=== PATIENT | male | born 1990 | race Caucasian/White ===

== ENCOUNTER 2017-04-16 11:50 | Emergency (ER) | payer BC ==
[2017-04-16] MEDS ORDERED: BOOSTRIX IM ONE ×2 (13:03→16:37)
[2017-04-16] MEDS ORDERED: XYLOCAINE 1% 20 mL INFILTRATI ONE (13:03)
[2017-04-16] MEDS ORDERED: NACL 0.9% IR ONE (13:03)
[2017-04-16] MEDS ORDERED: MOTRIN PO ONE ×2 (13:03→16:37)
[2017-04-16 13:04] VITALS: BP 119/76
--- NOTE | 2017-04-16 13:07 | Emergency Department Report ---
Chief Complaint: Wound/Laceration Stated Complaint: HAND LAC Time Seen by Provider: 04/16/17 13:01 - HPI History of Present Illness: PT c/o R hand laceration. PT states he punched a window because he locked his keys in his car. - ROS Review of Systems: + R hand pain + laceration - Exam Vital Signs: Vital Signs 04/16/17 13:01 Temperature 98.4 F Pulse Rate 82 Respiratory 20 Rate Blood Pressure 119/76 O2 Sat by Pulse 100 Oximetry Physical Exam: PT with R hand laceration, no active bleeding MSE screening note: Focused history and physical exam performed. Due to findings the following was ordered: xr, meds ED Disposition for MSE Condition: Stable
--- NOTE | 2017-04-16 13:27 | XRay Report ---
RIGHT HAND, 3 views: History: Right hand pain. The bony architecture is intact. Bony alignment is normal. No soft tissue abnormalities are seen. The joint spaces appear preserved. IMPRESSION: Unremarkable right hand.
[2017-04-16] MEDS ORDERED: XYLOCAINE 1% MPF 5 mL ONE (16:37)
[2017-04-16] MEDS ORDERED: NACL 0.9% 500 ML IR ONE (16:37)
--- NOTE | 2017-04-16 18:28 | Emergency Department Report ---
Upper Extremity - HPI Chief Complaint: Wound/Laceration Stated Complaint: HAND LAC Time Seen by Provider: 04/16/17 13:01 Upper Extremity: Right Hand Occurred When: Today Mechanism: Other (punched car window) Severity: moderate Symptoms: Yes Pain with Movement, Yes Deformity (visible laceration right volar hand 2nd MCP joint), Yes Swelling, Yes Laceration or Abrasion, No Limited Range of Movement, No Numbness, No Weakness, No Bruising/Ecchymosis Other History: 26-year-old male past medical history none presents with complaint of laceration to right second and third MCP areas. Patient states that he was trying to punch a car window and lacerated his hand in the process. States he was trying to break into his own vehicle because he locked himself outside of his car. Unaware of tetanus status. ED Review of Systems ROS: Stated complaint: HAND LAC Other details as noted in HPI Constitutional: denies: chills, fever Eyes: denies: eye pain, eye discharge, vision change ENT: denies: ear pain, throat pain Respiratory: denies: cough, shortness of breath, wheezing Cardiovascular: denies: chest pain, palpitations Endocrine: no symptoms reported Gastrointestinal: denies: abdominal pain, nausea, diarrhea Genitourinary: denies: urgency, dysuria Musculoskeletal: denies: back pain, joint swelling, arthralgia Skin: denies: rash, lesions Neurological: denies: headache, weakness, paresthesias Psychiatric: denies: anxiety, depression Hematological/Lymphatic: denies: easy bleeding, easy bruising ED Past Medical Hx - Past Medical History Previous Medical History?: No - Surgical History Past Surgical History?: No - Social History Smoking Status: Current Some Day Smoker Substance Use Type: Alcohol - Medications Home Medications: Home Medications Medication Instructions Recorded Confirmed Last Taken Type Acetaminophen/Codeine [Tylenol 1 tab PO Q6H PRN #10 tab 04/16/17 Unknown Rx /Codeine # 3 tab] Bacitracin/Polymixin B [Polysporin] 1 applicatio TP BID #1 tube 04/16/17 Unknown Rx Cephalexin [Keflex] 500 mg PO Q12HR #14 cap 04/16/17 Unknown Rx Naproxen [Naprosyn TAB] 375 mg PO BID PRN #20 tablet 04/16/17 Unknown Rx Upper Extremity Exam - Exam General: Vital signs noted. No distress. Alert and acting appropriately. Head and Torso: No HEENT Abnormality, No Neck Tenderness, No Chest/Lungs Abnormality, No Abdominal Tenderness, No Back Tenderness Shoulder Exam: Yes Normal Range of Motion in Shoulder, No Shoulder Tenderness, No Clavicle Tenderness, No Shoulder Deformity, No AC Joint Tenderness Arm Exam: No Arm/Humerus Tenderness, No Arm Deformity Elbow: No Elbow Tenderness, No Normal Range of Motion in Elbow, No Elbow Deformity Forearm: No Forearm Tenderness, No Forearm Deformity, No Pain with Pronation, No Pain with Supination Wrist: Yes Normal ROM in Wrist, No Wrist Tenderness, No Wrist Deformity, No Snuffbox Tenderness, No Pain with Axial Thumb Compression Hand: Yes Hand Tenderness (right second and third MCP joint laceration.), Yes Hand Deformity, Yes Normal ROM in Digit(s) (range of motion MCPs DIPs PIP is fully intact on exam, there is no snuffbox tenderness), No Digit Tenderness, No Digit(s) Deformity, No Tendon Dysfunction CMS Exam: Yes Normal Distal Pulses (distal sensation and distal capillary refill less than 1 second), No Broken Skin, No Normal Capillary Refill, No Normal Distal Sensation Hand L/R Back: 1 - C shaped laceration here at second and third MCP joints losing small amount of blood ED Course Vital Signs 04/16/17 13:01 Temperature 98.4 F Pulse Rate 82 Respiratory 20 Rate Blood Pressure 119/76 O2 Sat by Pulse 100 Oximetry - Laceration /Wound Repair Right Distal Hand Wound Location: upper extremity (right volar hand 2nd and 3rd mcp joints) Irrigated w/ Saline (ccs): 1,000 Betadine Prep?: Yes Volume Anesthetic (ccs): 5 Wound Repaired With: sutures Suture Size/Type: 4:0 Number of Sutures: 5 Layer Closure?: Yes Sterile Dressing Applied?: Yes (tripel abx ointment w/ kerlix wrap) ED Medical Decision Making - Medical Decision Making A/P: Right hand Laceration 1-sutures to be removed in 7-10 days 2-tetanus updated 3-Motrin when necessary, triple antibiotic ointment, short course keflex 4- pt advised to return to the ED for any fevers chills pus drainage erythema at site of laceration Critical care attestation.: If time is entered above; I have spent that time in minutes in the direct care of this critically ill patient, excluding procedure time. ED Disposition Clinical Impression: Hand laceration Qualifiers: Encounter type: initial encounter Foreign body presence: without foreign body Laterality: right Qualified Code(s): S61.411A - Laceration without foreign body of right hand, initial encounter Disposition: TO HOME OR SELFCARE Is pt being admited?: No Does the pt Need Aspirin: No Condition: Stable Instructions: Suture Care (ED), Laceration (ED), Hand Sprain (ED) Additional Instructions: Return to the ED in 7-10 days for suture removal Prescriptions: Acetaminophen/Codeine [Tylenol /Codeine # 3 tab] 1 tab PO Q6H PRN #10 tab PRN Reason: Pain Bacitracin/Polymixin B [Polysporin] 1 applicatio TP BID #1 tube Cephalexin [Keflex] 500 mg PO Q12HR #14 cap Naproxen [Naprosyn TAB] 375 mg PO BID PRN #20 tablet PRN Reason: Pain Referrals: [facility] [Provider Group] - 3-5 Days Forms: Work/School Release Form(ED) Time of Disposition: 18:29
[2017-04-16] MEDS ORDERED: TRIPLE ANTIBIOTIC TP ONE (18:36)
== END 2017-04-16 18:52 | disposition home or self-care (01) ==
LOC: ED 11:50
DX: S61.411A Laceration without foreign body of right hand, initial encounter (principal); F17.200 Nicotine dependence, unspecified, uncomplicated; W45.8XXA Other foreign body or object entering through skin, initial encounter; Y93.89 Activity, other specified; Y92.89 Other specified places as the place of occurrence of the external cause; Y99.8 Other external cause status
CPT/HCPCS: 90471; 90715

== ENCOUNTER 2017-04-26 14:39 | Emergency (ER) | payer BC ==
[2017-04-26 15:18] VITALS: BP 107/60
== END 2017-04-26 20:30 | disposition left against medical advice (07) ==
LOC: ED 14:39
DX: Z48.02 Encounter for removal of sutures (principal); Z53.21 Procedure and treatment not carried out due to patient leaving prior to being seen by health care provider

== ENCOUNTER 2017-05-04 08:38 | Emergency (ER) | payer BC ==
[2017-05-04 08:47] VITALS: BP 133/75
--- NOTE | 2017-05-04 11:25 | Emergency Department Report ---
Suture/Staple Removal - HPI Chief Complaint: Recheck/Abnormal Lab/Rx Stated Complaint: REMOVAL OF STITCHES Time Seen by Provider: 05/04/17 11:14 When Sutures or Allison Placed: >14 Days Ago Wound Location: R hand ED Review of Systems ROS: Stated complaint: REMOVAL OF STITCHES Other details as noted in HPI Constitutional: denies: chills, fever Gastrointestinal: denies: nausea, vomiting Skin: as per HPI, other (PT sttates he thinks he left his stitches in too long) ED Past Medical Hx - Past Medical History Previous Medical History?: No - Surgical History Past Surgical History?: No - Social History Smoking Status: Light Tobacco Smoker Substance Use Type: None - Medications Home Medications: Home Medications Medication Instructions Recorded Confirmed Last Taken Type Acetaminophen/Codeine [Tylenol 1 tab PO Q6H PRN #10 tab 04/16/17 Unknown Rx /Codeine # 3 tab] Bacitracin/Polymixin B [Polysporin] 1 applicatio TP BID #1 tube 04/16/17 Unknown Rx Cephalexin [Keflex] 500 mg PO Q12HR #14 cap 04/16/17 Unknown Rx Naproxen [Naprosyn TAB] 375 mg PO BID PRN #20 tablet 04/16/17 Unknown Rx Suture Removal Exam - Exam General: Vital signs noted. No distress. Alert and acting appropriately. Wound: No Pathologic Erythema, No Tenderness, No Drainage, No Pus, No Wound Dehiscence Other Systems: All other systems reviewed and are unremarkable. ED Course Vital Signs 05/04/17 08:43 Temperature 97.5 F L Pulse Rate 96 H Respiratory 18 Rate Blood Pressure 133/75 O2 Sat by Pulse 99 Oximetry - Reevaluation(s) Reevaluation #1: 05/04/17 11:23 PT tolerated suture removal well. no immediate complications - Procedure Description Procedures done: 5 sutures removed from R post hand - Pulse Oximetry Interpretation Digit-Finger Initial Pulse Oximetry Readin Actions Taken: none ED Recheck MDM - Differential Diagnosis Suture/Staple Removal Critical Care Time: No Critical care attestation.: If time is entered above; I have spent that time in minutes in the direct care of this critically ill patient, excluding procedure time. ED Disposition Clinical Impression: Visit for suture removal Disposition: DC-01 TO HOME OR SELFCARE Is pt being admited?: No Does the pt Need Aspirin: No Condition: Stable Instructions: Suture Removal (ED) Additional Instructions: Follow up with PCP in 3-5 days Recheck BP at follow up Referrals: PRIMARY MD GEOVANI [Primary Care Provider] - 3-5 Days EUGENIE BUSH MD [Staff Physician] - 3-5 Days [facility] [Outside] - 3-5 Days Forms: Work/School Release Form(ED) Time of Disposition: 11:25
== END 2017-05-04 11:29 | disposition home or self-care (01) ==
LOC: ED 08:38
DX: Z48.02 Encounter for removal of sutures (principal)